=== PATIENT | male | born 1960 | race Caucasian/White ===

== ENCOUNTER 2023-06-01 17:45 | Emergency (ER) | payer SELFPAY ==
[~2023-06-01] VITALS: Ht 172.7 cm; Wt 61.4 kg
--- NOTE | 2023-06-01 18:28 | NUR ---
REMOVED NASAL TRUMPET AND PLACED ON OXYGEN MASK AT 6 L FOR SAT 87% BUT HE IS AWAKE.
[2023-06-01 18:42] VITALS: BP 113/77; PULSE 106; RESP 15; TEMP 98.2; O2SAT 88
== END 2023-06-01 21:25 | disposition home or self-care (01) ==
LOC: ER 17:46
DX: T40.601A Poisoning by unspecified narcotics, accidental (unintentional), initial encounter (principal); R09.2 Respiratory arrest; E11.9 Type 2 diabetes mellitus without complications; F15.90 Other stimulant use, unspecified, uncomplicated; Z59.00 Homelessness unspecified; Y92.89 Other specified places as the place of occurrence of the external cause
CPT/HCPCS: 82948; 99283; A4615; A4620